=== PATIENT | female | born 1985 | race Caucasian/White ===

== ENCOUNTER 2024-12-26 10:41 | Emergency (ER) | payer SELFPAY ==
[2024-12-26 10:55] VITALS: BP 137/95; PULSE 76; RESP 16; TEMP 36.7; O2SAT 96; BMI 43.9
--- NOTE | 2024-12-26 11:03 | PC.NURSE ---
Patient came to the ED due to increased vaginal bleeding last night. Patient states that she was taking control due to control her heavy menstrual cycle, and had stopped [address] Moore at bedside assessing patient and updating on POC.
--- NOTE | 2024-12-26 11:06 | XR_ITS ---
Examination: Pelvic ultrasound, transabdominal, complete Technique: Transabdominal ultrasound of the pelvis performed using grayscale imaging Date and time of exam: December 26, 2024, 1302 hrs. Indications: Vaginal bleeding and pelvic cramping beginning 3 days ago. Findings: Uterus 12.5 cm endometrial stripe 0.90 cm No uterine mass or intrauterine gestation Right ovary 4.2 cm arterial flow, 24 mm cyst Absent left ovary Impression: Right ovarian simple cyst 24 x 17 x 22 mm
[2024-12-26 11:15] VITALS: BP 123/92; BP 128/96; BP 133/82; PULSE 75; PULSE 87
[2024-12-26] MEDS: RINGERS LACTATED 500 ML 500 ML IV (11:38)
[2024-12-26 12:03] LABS: Basophils % (Auto) 0 % (0-2.5); Eosinophils # (Auto) 0.1 Thou/mm3 (0.0-0.5); Eosinophils % (Auto) 2 % (0-10); Hematocrit 38.3 % (36.0-46.0); Immature Granulocytes % (Auto) 0 % (0-0); Immature Granulocytes Auto 0.01 Thou/mm3 (0.00-0.00); Lymphocytes # (Auto) 1.3 Thou/mm3 (1.0-4.8); Lymphocytes % (Auto) 23 % (10-50); Mean Corpuscular HGB Conc 33.9 g/dl (31.0-37.0); Mean Corpuscular Hemoglobin 28.1 pg (25.0-35.0); Mean Corpuscular Volume 83 fL (80-100); Monocytes # (Auto) 0.4 Thou/mm3 (0.0-0.8); Monocytes % (Auto) 7 % (0-12); Neutrophils % (Auto) 69 % (37-80); Nucleated Red Blood Cell % 0 /100 WBC (0); Platelet Count 179 Thou/mm3 (140-440); RDW Standard Deviation 39.5 fL (36.4-46.3); Red Blood Count 4.62 Miln/mm3 (4.00-5.20); White Blood Count 5.8 Thou/mm3 (3.6-11.0)
[2024-12-26 12:10] LABS: Partial Thromboplastin Time 26.5 Seconds (22.0-36.0); Prothrombin Time 10.8 Seconds (9.0-12.2)
[2024-12-26 12:31] LABS: Alanine Aminotransferase 21 U/L (10-49); Albumin, Serum 4.2 gm/dL (3.5-5.0); Albumin/Globulin Ratio 1.5 (1.2-2.2); Alkaline Phosphatase 60 U/L (46-116); Anion Gap 8 (7-16); Aspartate Amino Transferase 20 U/L (0-34); BUN/Creatinine Ratio 13 Ratio (12-20); Beta HCG,Quantitative < 1 mIU/mL (<5.0); Bilirubin,Total 0.4 mg/dL (0.3-1.2); Blood Urea Nitrogen 10 mg/dL (9-23); Calcium 8.8 mg/dL (8.3-10.6); Calcium (Corrected) 8.8 mg/dL (8.5-10.1); Carbon Dioxide 24.3 mMol/L (20.0-31.0); Chloride 106 mMol/L (98-107); Creatinine (Component) 0.8 mg/dL (0.6-1.3); Estimated Creatinine Clearance 142.6 mL/min (>60); Globulin 2.8 gm/dL (2.3-3.5); Glucose 105 mg/dL (74-106); Osmolality,Calculated 274 (275-295); Sodium 138 mMol/L (136-145); eGFR > 60 See Note
--- NOTE | 2024-12-26 13:08 | EDNOTE_ITS ---
ED OB Contraction Preg RMI/HPI General Chief complaint: Urogenital-Female Stated complaint: VAGINAL BLEEDING MORE THAN 3PADS/HR SINCE LAST PM Time Seen by Provider: 12/26/24 11:06 Arrival date/time: 12/26/24 10:41 Limitations: no limitations RME / HPI RME / HPI Narrative: 39 year old female with no significant past medical history presents to the ED with complaints of vaginal bleeding that began at 11:00 PM last night. She reports that the volume of bleeding is greater than her typical menstrual flow, requiring her to change up to 3 pads per hour. She also describes accompanying pelvic cramping, rating as mild. There are no other associated symptoms, such as dizziness, fever, or gastrointestinal complaints. The patient reports is a possibility, as she is currently not using any form of contraception and has had unprotected sex. Patient mentioned six months ago, she was briefly prescribed oral contraceptives for approximately 1.5 months to manage abnormal, prolonged menses, but she is not currently using control. Related Data Previous Rx's ?Medication ?Instructions ?Recorded ibuprofen 800 mg tablet 800 mg PO Q6H #30 tabs 06/25 ibuprofen 600 mg tablet 600 mg PO TID PRN pain #30 t abs 06/26/23 methocarbamol 750 mg tablet 750 mg PO Q8H #20 tabs Allergies Allergy/AdvReac Type Severity Reaction Status Date / Time codeine AdvReac Mild VOMITING, Verified 12/26/24 10:44 HIVES propoxyphene AdvReac Mild VOMITING Verified 12/26/24 10:44 Review of Systems Review of Systems Systems Reviewed: All systems reviewed, normal except as documented Past Medical History Past Medical History NEUROLOGIC: Negative Neurological Disorders CARDIAC: Negative Cardiac Disorders GASTROINTESTINAL: Positive Gastrointestinal Disorders and Irritable Bowel GENITOURINARY: Negative Genitourinary Disorders REPRODUCTIVE: Positive Previous Pregnancies ENDOCRINE: Positive Hypothyroidism (was having problems but pt stated thyroid has fixed itself) OTHER HISTORY: Positive Hospitalization and Chicken Pox Family History FAMILY HISTORY: Positive Family Gastrointestinal Problems; Negative Family Psychiatric Problems, Family Respiratory Disorders, Family Cardiac Disorders, Family Cancer, Family Surgery or Family Anesthesia Reaction Surgical History SURGICAL: Negative Section Social History SMOKING STATUS: Never smoker SECOND HAND EXPOSURE: No SUBSTANCE USE: does not use ED Exam General Limitations: Present no limitations General appearance: Present alert and in no apparent distress Head Head exam: Present atraumatic Eye Eye exam: Present normal appearance, PERRL and EOMI ENT ENT exam: Present normal exam, normal oropharynx and mucous membranes moist Neck Neck exam: Present normal inspection, full ROM and trachea midline Chest Chest inspection: Present normal inspection and symmetric chest wall rise Respiratory Respiratory exam: Present normal lung sounds bilaterally Cardiovascular Cardiovascular exam: Present regular rate, normal rhythm and normal heart sounds Abdominal Exam Abdominal exam: Present soft and normal bowel sounds Extremities Exam Extremities exam: Present normal inspection and full ROM Back Exam Back exam: Present normal inspection and full ROM Neurological Exam Neurological exam: Present alert, oriented X3 and CN II-XII intact Psychiatric Psychiatric exam: Present normal affect and normal mood Skin Skin exam: Present warm, dry, intact and normal color Course Quality Measures none Orders Category Date Time Status Orthostatic Vitals NOW Care 12/26/24 11:06 Completed US pelvic complete Stat Exams 12/26/24 11:06 Completed Beta HCG,Quantitative Stat Lab 12/26/24 11:28 Completed CBC [CBC] Stat Lab 12/26/24 11:28 Completed CMP [Comprehensive Metabolic Panel] Stat Lab 12/26/24 11:28 Completed INR [Prothrombin Time with INR] Stat Lab 12/26/24 11:28 Completed PTT [Partial Thromboplastin Time] Stat Lab 12/26/24 11:28 Completed Type and Screen Stat Lab 12/26/24 12:01 Completed UA, C/S IF [Urinalysis, C/S if Indicated] Stat Lab 12/26/24 13:07 Completed Urine Culture Stat Lab 12/26/24 13:07 Received MEDRoxyPROGESTERone ACET Inj [Depo-Provera Inj] Med 12/26/24 16:29 Discontinued 150 mg IM X1 ONE Ringers Lactated 500 ml [Lactated Ringers] 500 ml Med 12/26/24 11:08 Discontinued IV 500 mls/hr Vital Signs Vital signs: Vital Signs Temperature 98.0 F 12/26/24 10:55 Pulse Rate 76 12/26/24 10:55 Respiratory Rate 16 12/26/24 10:55 Blood Pressure 137/95 H 12/26/24 10:55 Pulse Oximetry (%) 96 12/26/24 10:55 Oxygen Delivery Method Room Air 12/26/24 10:55 Pulse ox is 96% on room air which is adequate. Vaginal Bleeding MDM Narrative MDM Narrative: IMaryanne, samm scribing for and in the presence of Dr. Moore. Assessment: Heavy vaginal bleeding, possible miscarriage likely secondary to noncompliance with control. Plan: IV fluids, pelvic ultrasound, type and screen, hCG. If miscarriage confirmed administer misoprostol and monitor closely until bleeding subsides. Administer Rhogam if patient is Rh-negative. Labs and US reviewed, patient is not . Diagnosed with dysfunctional uterine bleeding?and will give depo provera in the ED. ? Patient data External records reviewed:: [facility] previous records Clinical information provided by:: patient Social determinants that could affect healthcare access:: none Patient has the following chronic illnesses:: None How is presenting disease/condition affected by chronic disease/condition?: no chronic disease Evaluation data The following diagnostics were reviewed and interpreted by me:: lab results and radiology exam(s) Lab and/or radiology exams considered but not ordered:: None Interpretation Summary: Ordering Physician: Wolf Hernandez MD Date of Service: 12/26/24 Procedure(s): US pelvic complete Accession Number(s): [id number] cc: Wolf Hernandez MD; Aric Adam MD; Román Fernando MD~ Examination: Pelvic ultrasound, transabdominal, complete Technique: Transabdominal ultrasound of the pelvis performed using grayscale imaging Date and time of exam: December 26, 2024, 1302 hrs. Indications: Vaginal bleeding and pelvic cramping beginning 3 days ago. Findings: Uterus 12.5 cm endometrial stripe 0.90 cm No uterine mass or intrauterine gestation Right ovary 4.2 cm arterial flow, 24 mm cyst Absent left ovary Impression: Right ovarian simple cyst 24 x 17 x 22 mm Dictated By: Román Fernando MD Signed By: <Electronically signed by Román Fernando MD in OV> 12/26/24 1420 Medications / Prescriptions Medications or Prescriptions considered but not ordered:: None Medication administrations:: Medication Administration History Discontinued Medications Lactated Ringer's (Lactated Ringers) 500 mls @ 500 mls/hr IV .Q1H ONE Stop: 12/26/24 12:07 Last Infusion: 12/26/24 12:40 Dose: Infused Documented By: Admin: 12/26/24 11:38 Dose: 500 mls/hr Documented By: ER Medroxyprogesterone Acetate (Medroxyprogesterone Acet Inj 150 Mg/Ml Syringe) 150 mg IM X1 ONE Stop: 12/26/24 16:30 Last Admin: 12/26/24 17:02 Dose: 150 mg Documented By: ROSE See above Consultations Consultation(s) initiated? (list below): No Diagnosis Vaginal Bleeding Differential Diagnosis: missed , threatened , dysfunctional uterine bleeding, menometrorrhagia, incomplete , ectopic without intrauterine and vaginal bleeding Most likely diagnosis given after review of the tests above:: Dysfunctional uterine bleeding Admission Indicated Admission indicated?: not indicated Admission Request Was there a request for admission?: No Disposition Plan Disposition Plan: Discharge Discharge Attestation Discharge Attestation: The patient and all family members were given an opportunity to ask questions and understood the discharge instructions. Discharge instructions specifically effects, indications for sooner follow up or return to the emergency department, and the expected course of current diagnosis. Patient condition: Stable Discharge Plan Plan Patient Disposition: HOME (Self Care) Prescriptions/Referrals Prescriptions/Med Rec: No Action ibuprofen 800 mg tablet 800 mg PO Q6H Qty: 30 0RF ibuprofen 600 mg tablet 600 mg PO TID PRN (Reason: pain) Qty: 30 0RF methocarbamol 750 mg tablet 750 mg PO Q8H Qty: 20 0RF Referrals: Aric Adam MD [Primary Care Provider] - In 1 week Problem List Clinical Impression: Bleeding, uterine, dysfunctional Patient/Caregiver Discharge Instructions Education Materials: ED Dysfunctional Uterine Bleeding Additional Instructions: Make sure to follow-up with your POWER SHEAR OPERATOR regarding this abnormal uterine bleeding Most likely to hormonal imbalance however other local causes of uterine problems including hyperplasia or malignancy has to be ruled out Print Language: Wallisian Stand Alone Forms: [facility] Award Info., Patient Portal Info Letter
[2024-12-26 13:37] VITALS: BP 127/67; PULSE 73; RESP 15; O2SAT 96
[2024-12-26 13:38] LABS: Collection Type, Urine Clean Catch
[2024-12-26 13:58] LABS: Bilirubin,Urine Negative (Negative); Blood,Urine 3+ (Negative); Color,Urine Lt-Brown (Lt Yel-Yel); Glucose, Urine Negative (Negative); Ketones,Urine Negative (Negative); Leukocyte Esterase,Urine Negative (Negative); Nitrite,Urine Negative (Negative); Protein,Urine Trace (Neg - Trace); RBC,Urine 453 /hpf (0-3); Specific Gravity,Urine 1.007 (1.001-1.035); Squamous Epithelial Cell,Urine < 1 /hpf (0-5); Urobilinogen,Urine Negative mg/dL (0.0-1.0); WBC,Urine 11 /hpf (0-5)
[2024-12-26 14:01] LABS: Clarity,Urine Hazy (Clear/Hazy); Culture Indicated,Urine Yes
[2024-12-26 17:02] VITALS: BP 129/77; PULSE 76; RESP 16; TEMP 37.1; O2SAT 96
[2024-12-26] MEDS: MEDRoxyPROGESTERone ACET Inj 150 MG/ML SYRINGE IM (17:02)
== END 2024-12-26 17:13 | disposition home or self-care (01) ==
PROVIDERS: Emergency Provider Emergency Medicine; PCP Family Medicine
DX: N93.8 Other specified abnormal uterine and vaginal bleeding (principal)
CPT/HCPCS: 36415; 76856; 80053; 81001; 84702; 85025; 85610; 85730; 86850; 86900; 86901; 87086; 96360; 96372; 99284; J1050; J7120

== ENCOUNTER 2025-01-07 14:48 | Emergency (ER) | payer SELFPAY ==
[2025-01-07 15:06] VITALS: BP 145/96; PULSE 72; RESP 19; TEMP 37.1; O2SAT 97; BMI 44.8
--- NOTE | 2025-01-07 15:18 | XR_ITS ---
Examination: Transvaginal ultrasound of the pelvis, complete Technique: Transvaginal sonographic images pelvis performed using alvarez scale imaging Exam date and time: January 07, 2025 1524 hours INDICATIONS: Vaginal bleeding beginning 8 days ago worse the last 3 days FINDINGS: Uterus 9.9 cm endometrial stripe 0.9 cm No uterine mass or intrauterine gestation Right ovary 4.8 cm arterial flow 20 x 20 mm cyst Absent left ovary IMPRESSION: No uterine mass or intrauterine gestation Small right ovarian cyst 20 x 20 x 18 mm.
--- NOTE | 2025-01-07 15:18 | PD.EDRME ---
Rapid Medical Screening Exam ON LICENSE OF [facility] Arrival date/time: 01/07/25 14:48 39-year-old female with no known medical history presents to the emergency room with a chief complaint of vaginal bleeding and passing large clots x 1 week. Patient denies any . I have greeted and performed a focused initial assessment of this patient. A comprehensive ED assessment and evaluation of the patient, analysis of all test results, and completion of the medical decision making process will be conducted by additional ED providers. Chief Complaint: Vaginal Bleeding Time Seen by Provider: 01/07/25 15:13 Vital signs: Vital Signs Temperature 98.7 F 01/07/25 15:06 Pulse Rate 72 01/07/25 15:06 Respiratory Rate 19 01/07/25 15:06 Blood Pressure 145/96 H 01/07/25 15:06 Pulse Oximetry (%) 97 01/07/25 15:06 Oxygen Delivery Method Room Air 01/07/25 15:06 Vital signs reviewed by provider: Yes
[2025-01-07 16:02] LABS: Basophils # (Auto) 0.0 Thou/mm3 (0.0-0.2); Basophils % (Auto) 0 % (0-2.5); Eosinophils # (Auto) 0.1 Thou/mm3 (0.0-0.5); Eosinophils % (Auto) 1 % (0-10); Hematocrit 36.6 % (36.0-46.0); Hemoglobin 12.6 g/dL (12.0-16.0); Immature Granulocytes Auto 0.02 Thou/mm3 (0.00-0.00); Lymphocytes # (Auto) 1.9 Thou/mm3 (1.0-4.8); Lymphocytes % (Auto) 26 % (10-50); Mean Corpuscular HGB Conc 34.4 g/dl (31.0-37.0); Mean Corpuscular Hemoglobin 28.1 pg (25.0-35.0); Mean Corpuscular Volume 82 fL (80-100); Monocytes # (Auto) 0.3 Thou/mm3 (0.0-0.8); Monocytes % (Auto) 5 % (0-12); Neutrophils # (Auto) 4.9 Thou/mm3 (1.8-7.7); Neutrophils % (Auto) 68 % (37-80); Nucleated Red Blood Cell # 0.00 Thou/mm3 (0.00-0.00); Nucleated Red Blood Cell % 0 /100 WBC (0); Platelet Count 305 Thou/mm3 (140-440); RDW Standard Deviation 38.6 fL (36.4-46.3); Red Blood Count 4.49 Miln/mm3 (4.00-5.20); White Blood Count 7.2 Thou/mm3 (3.6-11.0)
[2025-01-07 17:13] LABS: HCG,Qualitative Serum Negative
[2025-01-07 17:16] LABS: INR 1.0 (0.9-1.3); Partial Thromboplastin Time 27.5 Seconds (22.0-36.0); Prothrombin Time 11.2 Seconds (9.0-12.2)
[2025-01-07 17:20] LABS: Alanine Aminotransferase 19 U/L (10-49); Albumin, Serum 4.8 gm/dL (3.5-5.0); Albumin/Globulin Ratio 1.5 (1.2-2.2); Alkaline Phosphatase 58 U/L (46-116); Anion Gap 11 (7-16); Aspartate Amino Transferase 19 U/L (0-34); BUN/Creatinine Ratio 10 Ratio (12-20); Bilirubin,Total 0.4 mg/dL (0.3-1.2); Blood Urea Nitrogen 10 mg/dL (9-23); Calcium 9.6 mg/dL (8.3-10.6); Calcium (Corrected) 9.6 mg/dL (8.5-10.1); Carbon Dioxide 21.6 mMol/L (20.0-31.0); Chloride 108 mMol/L (98-107); Creatinine (Component) 1.0 mg/dL (0.6-1.3); Estimated Creatinine Clearance 111.7 mL/min (>60); Globulin 3.1 gm/dL (2.3-3.5); Glucose 96 mg/dL (74-106); Osmolality,Calculated 280 (275-295); Potassium 3.9 mMol/L (3.4-5.1); Sodium 141 mMol/L (136-145); Total Protein 7.9 gm/dL (5.7-8.2); eGFR > 60 See Note
[2025-01-07 19:07] LABS: Collection Type, Urine Clean Catch
[2025-01-07 19:22] VITALS: BP 146/88; PULSE 73; RESP 16; TEMP 36.6; O2SAT 100
--- NOTE | 2025-01-07 19:29 | EDNOTE_ITS ---
<Statement entered by Amalia Martinez MD - 01/10/25 18:57> As co-signing physician, I was present and available for consult prn. I concur with the plan and care as documented by the midlevel provider. ED OB Contraction Preg RMI/HPI General Chief complaint: Vaginal Bleeding Stated complaint: Vaginal bleeding, large clots Time Seen by Provider: 01/07/25 15:13 Arrival date/time: 01/07/25 14:48 RME / HPI RME / HPI Narrative: 39-year-old female with no known medical history presents to the emergency room with a chief complaint of vaginal bleeding and passing large clots x 1 week. Patient denies any . Patient denies any dizziness. Patient is ambulatory. Patient was seen by WIRELESS ENGINEER last week and was given Depo shot. Denies any other complaints. Related Data Previous Rx's ?Medication ?Instructions ?Recorded ibuprofen 800 mg tablet 800 mg PO Q6H #30 tabs 06/25 ibuprofen 600 mg tablet 600 mg PO TID PRN pain #30 t abs 06/26/23 methocarbamol 750 mg tablet 750 mg PO Q8H #20 tabs medroxyprogesterone 10 mg tablet 10 mg PO QDAY #10 tab s 01/07/25 (Provera) tranexamic acid 650 mg tablet 650 mg PO TID #15 tabs 0 01/07/25 Allergies Allergy/AdvReac Type Severity Reaction Status Date / Time codeine AdvReac Mild VOMITING, Verified 01/07/25 14:53 HIVES propoxyphene AdvReac Mild VOMITING Verified 01/07/25 14:53 Review of Systems Review of Systems Narrative Review of Systems: Review of system reviewed and within normal limits except mentioned in HPI ED Exam Narrative Physical exam: VITAL SIGNS: Reviewed. GENERAL APPEARANCE: Alert and interactive, follows commands, no acute distress, HEAD AND FACE: Non-traumatic. ENT: PERRL, pink conjunctivitis, eyelid no trauma, Mucous membrane moist. NECK: Supple, nontender, no nuchal rigidity. CHEST: No tenderness, no crepitus, no paradoxical movement, no retractions. LUNGS: Clear, well ventilated, symmetric, no rales, no wheezing, no ronchi, no stridor, good breath sounds bilaterally. HEART: Regular rate, regular rhythm, no murmur, no gallops. ABDOMEN: Soft, positive bowel sounds, nondistended, no guarding, nontender, no rebound, no masses, RECTAL: Deferred. GENITAL: Deferred. NEUROLOGICAL: Gross motor function intact sensory function intact, Appropriate for age. MUSCULOSKELETAL: low back nontender, full range of motion. EXTREMITIES: Nontender, full range of motion. SKIN: Color pink, dry, no rash, no lacerations, no abrasions, no contusions. LYMPHATICS: Deferred. Course Quality Measures none Orders Category Date Time Status US transvaginal Stat Exams 01/07/25 15:18 Completed CBC Stat Lab 01/07/25 15:45 Completed CMP [Comprehensive Metabolic Panel] Stat Lab 01/07/25 16:35 Completed HCG,Qualitative Serum Stat Lab 01/07/25 16:35 Completed PT [Prothrombin Time with INR] Stat Lab 01/07/25 16:35 Completed PTT [Partial Thromboplastin Time] Stat Lab 01/07/25 16:35 Completed Type and Screen Stat Lab 01/07/25 16:35 Completed UA [Urinalysis] Stat Lab 01/07/25 19:02 Completed Vital Signs Vital signs: Vital Signs Temperature 98.7 F 01/07/25 15:06 Pulse Rate 72 01/07/25 15:06 Respiratory Rate 19 01/07/25 15:06 Blood Pressure 145/96 H 01/07/25 15:06 Pulse Oximetry (%) 97 01/07/25 15:06 Oxygen Delivery Method Room Air 01/07/25 15:06 Vaginal Bleeding MDM Narrative MDM Narrative: 39-year-old female with no known medical history presents to the emergency room with a chief complaint of vaginal bleeding and passing large clots x 1 week. Patient denies any . Patient denies any dizziness. Patient is ambulatory. Patient was seen by WIRELESS ENGINEER last week and was given Depo shot. Denies any other complaints Patient CBC today showed no abnormality, patient's hemoglobin was noted to be 12.6, hematocrit of 36.6 platelets normal CMP unremarkable patient is not urinalysis no UTI. Ultrasound of the pelvis transverse showed No uterine mass or intrauterine gestation Small right ovarian cyst 20 x 20 x 18 mm. Plan of care discussed with the patient, including sending the patient home on Provera and tranexamic acid. Patient was also advised to follow-up closely with WIRELESS ENGINEER this coming Friday. Patient is requesting for MRI of the pelvis which I told her and her mom that at this time there is no indications to do MRI of the pelvis regarding dysfunctional uterine bleeding. She can ask her WIRELESS ENGINEER for MRI of the patient's pelvis outpatient. There is no need to do emergency MRI at this time. I did not see any indication at this time for MRI of the pelvis Patient appears nontoxic and hemodynamically stable .Decision to discharge the patient. The patient/family was given an opportunity to ask questions and understood their discharge instructions. Discharge instructions specifically included follow up provider and time frame, current and/or new medications and possible side effects, indications for sooner follow up or return to the emergency department, and the expected course of current diagnosis. Patient reports feeling better as well and giving evidence of significant clinical improvement, I believe patient is now a candidate for discharge. Patient data External records reviewed:: None Clinical information provided by:: patient and family Social determinants that could affect healthcare access:: none Patient has the following chronic illnesses:: None How is presenting disease/condition affected by chronic disease/condition?: no chronic disease Evaluation data The following diagnostics were reviewed and interpreted by me:: lab results and radiology exam(s) Lab and/or radiology exams considered but not ordered:: None Interpretation Summary: None Medications / Prescriptions Medications or Prescriptions considered but not ordered:: None Medication administrations:: None Consultations Consultation(s) initiated? (list below): No Diagnosis Vaginal Bleeding Differential Diagnosis: dysfunctional uterine bleeding, menometrorrhagia and vaginal bleeding Most likely diagnosis given after review of the tests above:: Dysfunctional uterine bleeding Admission Indicated Admission indicated?: not indicated Admission Request Was there a request for admission?: No Disposition Plan Disposition Plan: Discharge Discharge Attestation Discharge Attestation: The patient and all family members were given an opportunity to ask questions and understood the discharge instructions. Discharge instructions specifically effects, indications for sooner follow up or return to the emergency department, and the expected course of current diagnosis. Patient condition: Stable Discharge Plan Plan Patient Disposition: HOME (Self Care) Discharge Disposition comment: Stable Prescriptions/Referrals Prescriptions/Med Rec: New medroxyprogesterone [Provera] 10 mg tablet 10 mg PO QDAY Qty: 10 0RF tranexamic acid 650 mg tablet 650 mg PO TID Qty: 15 0RF No Action ibuprofen 800 mg tablet 800 mg PO Q6H Qty: 30 0RF ibuprofen 600 mg tablet 600 mg PO TID PRN (Reason: pain) Qty: 30 0RF methocarbamol 750 mg tablet 750 mg PO Q8H Qty: 20 0RF Referrals: No Primary/Family,Physician [Primary Care Provider] - In 1 week Problem List Clinical Impression: Bleeding, uterine, dysfunctional, Ovarian cyst Patient/Caregiver Discharge Instructions Discharge Activity: activity as tolerated Education Materials: ED Dysfunctional Uterine Bleeding, ED Ovarian Cyst Additional Instructions: Thank you for the opportunity for serving you today. You are stable for discharged . You are advised to: Follow-up with your WIRELESS ENGINEER this Friday Return to ED for worsening of symptoms Increase oral fluids Take medication as prescribed Print Language: Tristanian Stand Alone Forms: Khushbu Award Info., Patient Portal Info Letter NARESH/ANA Supervising Physician NARESH/ANA Supervising Physician: MD Joaquim
[2025-01-07 19:34] LABS: Amorphous Crystals,Urine Present (Absent); Bilirubin,Urine Negative (Negative); Blood,Urine 3+ (Negative); Clarity,Urine Turbid (Clear/Hazy); Color,Urine Yellow (Lt Yel-Yel); Glucose, Urine Negative (Negative); Granular Casts,Urine < 1 /hpf (0-1); Ketones,Urine 1+ (Negative); Leukocyte Esterase,Urine Negative (Negative); Nitrite,Urine Negative (Negative); PH,Urine 5.5 (5.0-7.0); Protein,Urine 1+ (Neg - Trace); RBC,Urine 576 /hpf (0-3); Specific Gravity,Urine 1.034 (1.001-1.035); Squamous Epithelial Cell,Urine 2 /hpf (0-5); Urobilinogen,Urine Negative mg/dL (0.0-1.0); WBC,Urine 3 /hpf (0-5)
== END 2025-01-07 20:04 | disposition home or self-care (01) ==
PROVIDERS: Nurse Practitioner Family; Emergency Provider Emergency Medicine
DX: N83.201 Unspecified ovarian cyst, right side (principal); N93.8 Other specified abnormal uterine and vaginal bleeding
CPT/HCPCS: 36415; 76830; 80053; 81001; 84703; 85025; 85610; 85730; 86850; 86900; 86901; 99284